=== PATIENT | male | born 1935 | race Caucasian/White ===

== ENCOUNTER → 2018-07-24 | Outpatient (CLI) | payer MEDICARE, OTHER ==
[~2018-07-24] MED LIST: ALLO300 PO; AMOX500 PO; ASPI325 PO; AZIT250 PO; Arthritis Pai42.5 GM TOP; CLON.5 PO; CLON1 PO; COLC.6 PO; ELIQUIS5 MG PO; FURO40 PO; FURO80 PO; Furosemide40 MG PO; GLIM4 PO; HYDACE5 PO; HYDACE7.5 PO; HYDR1TAB94 PO; INDO50 PO; LOVA40 PO; Lopressor 25 mg25 MG PO; METF500 PO; MONT10T PO; NIFE60ER PO; OMEP20ER PO; OXYACE5T PO; Omeprazole20 M1 PO; POTA10T PO; PROB500 PO; RXOXYACE PO; SERT100 PO; SITA100T2 PO; TAMS.4ER PO; TRAZ100 PO; Toprol Xl25 MG PO; VALS80 PO
[2018-07-25 16:13] LABS: Adenovirus F 40/41 Not Detected (NOT DETECT); Astrovirus Detected (NOT DETECT); Campylobacter Sp Not Detected (NOT DETECT); Cryptosporidium Not Detected (NOT DETECT); Cyclospora Cayetanensis Not Detected (NOT DETECT); E. Coli O157 Not Detected (NOT DETECT); Entamoeba Histolytica Not Detected (NOT DETECT); Enteroaggregative E. coli-EAEC Not Detected (NOT DETECT); Enteropathogenic E. coli-EPEC Not Detected (NOT DETECT); Enterotoxigenic E. coli-ETEC Not Detected (NOT DETECT); Giardia Lamblia Not Detected (NOT DETECT); Norovirus GI/GII Not Detected (NOT DETECT); Plesiomonas Shigelloides Not Detected (NOT DETECT); Rotavirus A Not Detected (NOT DETECT); Salmonella Sp Not Detected (NOT DETECT); Sapovirus Not Detected (NOT DETECT); Shiga Toxin-prod E. coli-STEC Not Detected (NOT DETECT); Shigella/Enteroin E. coli-EIEC Not Detected (NOT DETECT); Vibrio Cholerae Not Detected (NOT DETECT); Vibrio Sp Not Detected (NOT DETECT); Yersinia Enterocolitica Not Detected (NOT DETECT)
== END | disposition home or self-care (01) ==
LOC: LAB EV 06:30 → LAB SHORT 06:30
PROVIDERS: Nurse Practitioner Family
DX: E86.0 Dehydration (principal); M19.90 Unspecified osteoarthritis, unspecified site; R19.7 Diarrhea, unspecified
CPT/HCPCS: 87177; 87209; 87493; 87507

== ENCOUNTER → 2018-11-28 | Outpatient (CLI) | payer MEDICARE, OTHER | END | disposition home or self-care (01) | LOC: LAB SHORT 14:02 → PLD 14:02 | DX: C44.622 Squamous cell carcinoma of skin of right upper limb, including shoulder (principal) | CPT/HCPCS: 88305 ==

== ENCOUNTER → 2019-01-02 | Outpatient (CLI) | payer MEDICARE, OTHER | END | disposition home or self-care (01) | LOC: LAB SHORT 13:29 → PLD 13:29 | DX: C44.622 Squamous cell carcinoma of skin of right upper limb, including shoulder (principal) | CPT/HCPCS: 88305 ==

== ENCOUNTER → 2019-09-07 | Outpatient (CLI) | payer MEDICARE, OTHER ==
[2019-09-07 14:16] LABS: BASOPHILS ABSOLUTE AUTO 0.01 K/mm3 (0.00-0.23); BASOPHILS PERCENT AUTO 0 % (0-2); EOSINOPHILS ABSOLUTE AUTO 0.16 K/mm3 (0.00-0.68); EOSINOPHILS PERCENT AUTO 2 % (0-6); Hematocrit 42.3 % (37.0-53.0); IMMATURE GRAN ABSOLUTE AUTO 0.03 K/mm3 (0.00-0.10); IMMATURE GRAN PERCENT AUTO 1 % (0-1); LYMPHOCYTES ABSOLUTE AUTO 1.27 K/mm3 (0.84-5.20); LYMPHOCYTES PERCENT AUTO 19 % (21-46); MONOCYTES ABSOLUTE AUTO 0.42 K/mm3 (0.16-1.47); MONOCYTES PERCENT AUTO 6 % (4-13); Mean Corpuscular HGB 30.8 pg (26.0-34.0); Mean Corpuscular HGB Conc 33.1 g/dL (31.5-36.5); Mean Corpuscular Volume 93 fL (80-100); Mean Platelet Volume 10.6 fL (9.1-12.4); NEUTROPHILS ABSOLUTE AUTO 4.77 K/mm3 (1.96-9.15); NEUTROPHILS PERCENT AUTO 72 % (41-73); Platelet Count 188 K/mm3 (150-400); RDW Coefficient Variation 14.4 % (11.7-14.2); RDW Standard Deviation 48.9 fL (35.1-46.3); Red Blood Cell Count 4.54 M/mm3 (4.30-5.90); White Blood Cell Count 6.66 K/mm3 (4.00-11.30)
[2019-09-07 14:36] LABS: Anion Gap 7 mmol/L (6-16); Blood Urea Nitrogen 18 mg/dL (8-24); Bun/Creatinine Ratio 15.7 (12.0-20.0); CO2, Blood 29 mmol/L (21-32); Calcium, Blood 9.1 mg/dL (8.5-10.1); Chloride, Blood 102 mmol/L (98-108); Creatinine, Blood 1.15 mg/dL (0.60-1.20); Glomerular Filtration Rate >60 (60-); Glucose, Blood 171 mg/dL (70-99); Potassium, Blood 4.3 mmol/L (3.5-5.5); Sodium, Blood 138 mmol/L (136-145)
== END ==
LOC: LAB SHORT 14:09 → LAB EV 14:09
PROVIDERS: Physician Assistant Surgical
DX: R53.83 Other fatigue (principal)
CPT/HCPCS: 80048; 83880; 85025

== ENCOUNTER → 2020-07-17 | Outpatient (CLI) | payer MEDICARE, OTHER | END | disposition home or self-care (01) | LOC: LAB EV 12:04 | DX: R19.7 Diarrhea, unspecified (principal) | CPT/HCPCS: 87493 ==

== ENCOUNTER → 2021-01-17 | Outpatient (CLI) | payer MEDICARE, OTHER ==
[2021-01-17 10:54] LABS: BASOPHILS ABSOLUTE AUTO 0.02 K/mm3 (0.00-0.23); BASOPHILS PERCENT AUTO 0 % (0-2); EOSINOPHILS ABSOLUTE AUTO 0.21 K/mm3 (0.00-0.68); EOSINOPHILS PERCENT AUTO 3 % (0-6); Hemoglobin 13.9 g/dL (13.5-17.5); IMMATURE GRAN ABSOLUTE AUTO 0.03 K/mm3 (0.00-0.10); IMMATURE GRAN PERCENT AUTO 1 % (0-1); LYMPHOCYTES ABSOLUTE AUTO 1.48 K/mm3 (0.84-5.20); LYMPHOCYTES PERCENT AUTO 24 % (21-46); MONOCYTES ABSOLUTE AUTO 0.41 K/mm3 (0.16-1.47); MONOCYTES PERCENT AUTO 7 % (4-13); Mean Corpuscular HGB 31.2 pg (26.0-34.0); Mean Corpuscular HGB Conc 33.1 g/dL (31.5-36.5); Mean Corpuscular Volume 94 fL (80-100); Mean Platelet Volume 9.8 fL (9.1-12.4); NEUTROPHILS ABSOLUTE AUTO 4.02 K/mm3 (1.96-9.15); NEUTROPHILS PERCENT AUTO 65 % (41-73); Platelet Count 192 K/mm3 (150-400); RDW Coefficient Variation 14.3 % (11.7-14.2); RDW Standard Deviation 49.2 fL (35.1-46.3); Red Blood Cell Count 4.46 M/mm3 (4.30-5.90); White Blood Cell Count 6.17 K/mm3 (4.00-11.30)
[2021-01-17 11:03] LABS: Alanine Aminotransfer (ALT/SGP 21 U/L (12-78); Albumin, Blood 3.7 g/dL (3.4-5.0); Albumin/Globulin Ratio 0.9 (0.8-1.8); Alk Phos 74 U/L (40-126); Anion Gap 6 mmol/L (6-16); Aspartate Aminotrans (AST/SGOT 24 U/L (12-37); Bilirubin, Total 0.4 mg/dL (0.1-1.0); Blood Urea Nitrogen 18 mg/dL (8-24); Bun/Creatinine Ratio 15.9 (12.0-20.0); CO2, Blood 30 mmol/L (21-32); Calcium, Blood 8.4 mg/dL (8.5-10.1); Chloride, Blood 101 mmol/L (98-108); Creatinine, Blood 1.13 mg/dL (0.60-1.20); Globulin, Blood 4.3 g/dL (2.2-4.0); Glomerular Filtration Rate >60 (60-); Glucose, Blood 157 mg/dL (70-99); Potassium, Blood 5.3 mmol/L (3.5-5.5); Sodium, Blood 137 mmol/L (136-145)
== END ==
LOC: LAB 10:50 → LAB SHORT 10:50
PROVIDERS: Physician Assistant
DX: R53.83 Other fatigue (principal)
CPT/HCPCS: 80053; 85025

== ENCOUNTER → 2021-02-16 | Outpatient (CLI) | payer MEDICARE, OTHER | END | disposition home or self-care (01) | LOC: LAB 15:04 → LAB SHORT 15:04 | DX: L08.9 Local infection of the skin and subcutaneous tissue, unspecified (principal) | CPT/HCPCS: 87070; 87075; 87077; 87147; 87186; 87205 ==

== ENCOUNTER → 2021-03-04 | Outpatient (CLI) | payer MEDICARE, OTHER | END | disposition home or self-care (01) | LOC: LAB SHORT 08:18 | DX: S50.852A Superficial foreign body of left forearm, initial encounter (principal) | CPT/HCPCS: 88305; 88312 ==

== ENCOUNTER → 2022-03-24 | Outpatient (CLI) | payer MEDICARE, OTHER | END | disposition home or self-care (01) | LOC: LAB SHORT 12:00 → LAB 12:00 | DX: L08.0 Pyoderma (principal) | CPT/HCPCS: 87070; 87077; 87147; 87186; 87205 ==

== ENCOUNTER 2022-10-22 06:48 | Day surgery (SDC) | payer MEDICARE, OTHER ==
[~2022-10-22] VITALS: Ht 172.7 cm; Wt 115.0 kg
[2022-10-22] MEDS ORDERED: Voltaren100 GM (07:42)
[2022-10-22] MEDS ORDERED: GABA100 (07:43)
[2022-10-22] MEDS ORDERED: TIMDOROPSO (07:43)
[2022-10-22] MEDS ORDERED: Amaryl1 MG (07:43)
[2022-10-22] MEDS ORDERED: Percocet 5-3251 EACH (07:44)
[2022-10-22] MEDS ORDERED: MYRBETRIQ8 MG/1 ML (07:44)
[2022-10-22] MEDS ORDERED: PRESERVISION A1 EAC2 (07:45)
--- NOTE | 2022-10-22 08:50 | NUR ---
10/22/22 0850 WILLIAM STEWART NASAL TRUMPET, AMBU BAG / LMA BY DR. AGUAYO
[2022-10-22 09:45] VITALS: BP 140/77
== END 2022-10-22 09:30 | disposition home or self-care (01) ==
LOC: ORSCSDS 06:48
PROVIDERS: Surgery
PROC: 0DBM8ZX Excision of Descending Colon, Via Natural or Artificial Opening Endoscopic, Diagnostic (ICD-10-PCS; principal; 2022-10-22 08:15)
PROC: 0DBL8ZX Excision of Transverse Colon, Via Natural or Artificial Opening Endoscopic, Diagnostic (ICD-10-PCS; principal; 2022-10-22 08:15)
PROC: 0DBK8ZX Excision of Ascending Colon, Via Natural or Artificial Opening Endoscopic, Diagnostic (ICD-10-PCS; principal; 2022-10-22 08:15)
DX: Z12.11 Encounter for screening for malignant neoplasm of colon (principal); Z80.0 Family history of malignant neoplasm of digestive organs; Z86.010 Personal history of colon polyps; D12.2 Benign neoplasm of ascending colon; D12.3 Benign neoplasm of transverse colon; K57.30 Diverticulosis of large intestine without perforation or abscess without bleeding; G47.33 Obstructive sleep apnea (adult) (pediatric); Z80.42 Family history of malignant neoplasm of prostate; I25.10 Atherosclerotic heart disease of native coronary artery without angina pectoris; I48.91 Unspecified atrial fibrillation; Z79.01 Long term (current) use of anticoagulants; E11.40 Type 2 diabetes mellitus with diabetic neuropathy, unspecified; E78.5 Hyperlipidemia, unspecified; I10 Essential (primary) hypertension; Z79.899 Other long term (current) drug therapy; Z79.84 Long term (current) use of oral hypoglycemic drugs
CPT/HCPCS: 82947; 88305; J2704; J7120

== ENCOUNTER 2023-01-16 20:38 | Emergency (ER) | payer MEDICARE, OTHER ==
[~2023-01-16] VITALS: Ht 172.7 cm; Wt 99.8 kg
[~2023-01-16 20:38] MED LIST changes: +Amaryl1 MG; +GABA100; +MYRBETRIQ8 MG/1 ML; +PRESERVISION A1 EAC2; +Percocet 5-3251 EACH; +TIMDOROPSO; +Voltaren100 GM
[2023-01-16 21:32] LABS: BASOPHILS ABSOLUTE AUTO 0.03 K/mm3 (0.00-0.23); BASOPHILS PERCENT AUTO 0 % (0-2); EOSINOPHILS ABSOLUTE AUTO 0.21 K/mm3 (0.00-0.68); EOSINOPHILS PERCENT AUTO 3 % (0-6); Hematocrit 41.1 % (37.0-53.0); Hemoglobin 13.6 g/dL (13.5-17.5); IMMATURE GRAN ABSOLUTE AUTO 0.04 K/mm3 (0.00-0.10); IMMATURE GRAN PERCENT AUTO 1 % (0-1); LYMPHOCYTES ABSOLUTE AUTO 1.55 K/mm3 (0.84-5.20); LYMPHOCYTES PERCENT AUTO 21 % (21-46); MONOCYTES ABSOLUTE AUTO 0.37 K/mm3 (0.16-1.47); MONOCYTES PERCENT AUTO 5 % (4-13); Mean Corpuscular HGB 30.5 pg (26.0-34.0); Mean Corpuscular HGB Conc 33.1 g/dL (31.5-36.5); Mean Corpuscular Volume 92 fL (80-100); Mean Platelet Volume 9.7 fL (9.1-12.4); NEUTROPHILS ABSOLUTE AUTO 5.06 K/mm3 (1.96-9.15); NEUTROPHILS PERCENT AUTO 70 % (41-73); NRBC ABSOLUTE 0.02 K/mm3 (0.00-0.02); NRBC Auto 0.3 /100 WBC (0.0-0.2); Platelet Count 121 K/mm3 (150-400); RDW Standard Deviation 47.1 fL (35.1-46.3); Red Blood Cell Count 4.46 M/mm3 (4.30-5.90); White Blood Cell Count 7.26 K/mm3 (4.00-11.30)
[2023-01-16 21:49] LABS: Albumin, Blood 3.3 g/dL (3.4-5.0); Albumin/Globulin Ratio 0.8 (0.8-1.8); Bilirubin, Total 0.2 mg/dL (0.1-1.0); Calcium, Blood 8.5 mg/dL (8.5-10.1); Creatinine, Blood 0.93 mg/dL (0.60-1.20); Globulin, Blood 4.1 g/dL (2.2-4.0); Potassium, Blood 4.3 mmol/L (3.5-5.5); Total Protein, Blood 7.4 g/dL (6.4-8.2)
[2023-01-16 23:11] LABS: Source, Urine Clean Catch
[2023-01-16 23:18] LABS: Bilirubin, Urine Neg (Neg); Blood, Urine 1+ (Neg); Glucose Qualitative, Urine Neg (Neg); Ketones, Urine Neg (Neg); Leukocyte Esterase, Urine Neg (Neg); Nitrite, Urine Neg (Neg); Protein, Urine 3+ (Neg); Urobilinogen, Urine NORM (Normal)
[2023-01-16 23:20] LABS: Appearance, Urine Clear (Clear); Color, Urine Yellow (P-Yellow)
[2023-01-16 23:25] LABS: Bacteria Not Seen /hpf; Red Blood Cells, Urine 0-2 /hpf (0-2); Squamous Epithelial Cells Rare /hpf (Few); White Blood Cells, Urine Not Seen /hpf (0-5)
[2023-01-16] MEDS ORDERED: Robaxin750 MG PO (23:32)
[2023-01-16] MEDS ORDERED: Percocet 5-3251 EACH PO (23:32)
[2023-01-16 23:50] VITALS: BP 107/64
== END 2023-01-16 23:50 | disposition home or self-care (01) ==
LOC: ER 20:38
PROVIDERS: Physician Assistant
DX: S39.012A Strain of muscle, fascia and tendon of lower back, initial encounter (principal); R53.1 Weakness; W19.XXXA Unspecified fall, initial encounter; Z79.01 Long term (current) use of anticoagulants; Z79.2 Long term (current) use of antibiotics; Z79.84 Long term (current) use of oral hypoglycemic drugs; Z79.899 Other long term (current) drug therapy; E11.9 Type 2 diabetes mellitus without complications; G47.30 Sleep apnea, unspecified; I48.91 Unspecified atrial fibrillation; Z87.891 Personal history of nicotine dependence
CPT/HCPCS: 72100; 80053; 81001; 85025; 93005; 93010; 96374; 99285-25; A9270; J1885

== ENCOUNTER → 2023-09-29 | Outpatient (CLI) | payer MEDICARE, OTHER ==
[~2023-09-29] MED LIST changes: +Amaryl1 MG PO; +ELIQUIS2.5 MG PO; +GABA300 PO; +LATA.005SO BOTHEYES; +MYRBETRIQ50 MG PO; +Percocet 5-3251 EACH PO; +Prednisone20 MG PO; +Robaxin750 MG PO; -TIMDOROPSO; +TIMDOROPSO BOTHEYES; -Voltaren100 GM; +Voltaren100 GM TOP
[2023-09-29 13:30] LABS: BASOPHILS ABSOLUTE AUTO 0.02 K/mm3 (0.00-0.23); BASOPHILS PERCENT AUTO 0 % (0-2); EOSINOPHILS ABSOLUTE AUTO 0.01 K/mm3 (0.00-0.68); EOSINOPHILS PERCENT AUTO 0 % (0-6); Hematocrit 39.4 % (37.0-53.0); Hemoglobin 12.9 g/dL (13.5-17.5); IMMATURE GRAN ABSOLUTE AUTO 0.08 K/mm3 (0.00-0.10); IMMATURE GRAN PERCENT AUTO 1 % (0-1); LYMPHOCYTES ABSOLUTE AUTO 1.06 K/mm3 (0.84-5.20); LYMPHOCYTES PERCENT AUTO 11 % (21-46); MONOCYTES ABSOLUTE AUTO 0.54 K/mm3 (0.16-1.47); MONOCYTES PERCENT AUTO 6 % (4-13); Mean Corpuscular HGB 30.2 pg (26.0-34.0); Mean Corpuscular HGB Conc 32.7 g/dL (31.5-36.5); Mean Corpuscular Volume 92 fL (80-100); NEUTROPHILS ABSOLUTE AUTO 7.73 K/mm3 (1.96-9.15); NEUTROPHILS PERCENT AUTO 82 % (41-73); RDW Coefficient Variation 15.2 % (11.7-14.2); RDW Standard Deviation 50.7 fL (35.1-46.3); Red Blood Cell Count 4.27 M/mm3 (4.30-5.90); White Blood Cell Count 9.44 K/mm3 (4.00-11.30)
[2023-09-29 13:41] LABS: Albumin, Blood 3.6 g/dL (3.4-5.0); Albumin/Globulin Ratio 0.8 (0.8-1.8); Bilirubin, Total 1.3 mg/dL (0.1-1.0); Bun/Creatinine Ratio 19.8 (12.0-20.0); Calcium, Blood 9.5 mg/dL (8.5-10.1); Creatinine, Blood 1.11 mg/dL (0.60-1.20); Globulin, Blood 4.5 g/dL (2.2-4.0); Potassium, Blood 3.8 mmol/L (3.5-5.5); Total Protein, Blood 8.1 g/dL (6.4-8.2)
[2023-09-29 13:50] LABS: Platelet Count 20 K/mm3 (150-400)
[2023-09-29 15:58] LABS: International Normalized Ratio 1.21; Prothrombin Time Results 12.6 Sec (9.7-11.5)
== END ==
LOC: LAB 13:22 → LAB SHORT 13:22
PROVIDERS: Physician Assistant
DX: R05.9 Cough, unspecified (principal); D69.6 Thrombocytopenia, unspecified
CPT/HCPCS: 80053; 85025; 85610

== ENCOUNTER 2023-10-06 17:09 | Inpatient (IN) | payer MEDICARE, OTHER ==
[~2023-10-06] VITALS: Ht 172.7 cm; Wt 110.8 kg
[~2023-10-06 17:09] MED LIST changes: -Amaryl1 MG PO; -ELIQUIS2.5 MG PO; -GABA300 PO; -LATA.005SO BOTHEYES; -MYRBETRIQ50 MG PO; -Prednisone20 MG PO
[2023-10-06 17:27] VITALS: BP 159/70
[2023-10-06] MEDS ORDERED: METF500 PO ×2 (18:01→18:42)
[2023-10-06] MEDS ORDERED: MethylPREDNISolone Sod Succ 40 MG VIAL IV SCH (18:15)
[2023-10-06] MEDS ORDERED: ELIQUIS2.5 MG PO (18:39)
[2023-10-06] MEDS ORDERED: FURO40 PO (18:39)
[2023-10-06] MEDS ORDERED: GABA300 PO ×2 (18:40)
[2023-10-06] MEDS ORDERED: Amaryl1 MG PO (18:41)
[2023-10-06] MEDS ORDERED: LATA.005SO BOTHEYES (18:42)
[2023-10-06] MEDS ORDERED: Robaxin750 MG PO (18:44)
[2023-10-06] MEDS ORDERED: MYRBETRIQ50 MG PO (18:46)
[2023-10-06] MEDS ORDERED: OMEP20ER PO (18:46)
[2023-10-06] MEDS ORDERED: POTA10T PO (18:47)
[2023-10-06 19:28] VITALS: BP 141/71
--- NOTE | 2023-10-06 19:43 | NUR ---
SHIFT SUMMARY- PT WAS A DIRECT ADMIT FOR THROMBOCYTOPENIA. PLATELET COUNT IS 7 ON OUT PT LBS TODAY. PT WAS CHANGED INTO A GOWN, 2 RN SKIN CHECK WAS COMPLETED WITH RN SANJUANITA GREENFIELD. PT FAMILY IS AT THE BEDSIDE. CALLED DR LUNDBERG AND RECIEVED VERBAL ORDERS FOR ADMISSION. AT THE TIME OF ASESSMENT THE PT FAMILY EXPRESSED CONCERN ABOUT THE PT NEED FOR A C-PAP. CALLED DR LUNDBERG AND RECIEVED CONT BIOX AND CPAP ORDERS. CALLED RT AND REQUESTED SET UP. THEY ARE AWARE OF THE ORDER. ATTEMPTED IV ACCESS IN THE LEFT FORE ARM, THERE WAS A FLASH BUT WOULD NOT ADVANCE OR FLUSH. D/T SWELLING AT THE SITE A PRESSURE WRAP WAS PLACED. PASSED ON TO NIGHT RN IN BEDSIDE REPORT. PT IN BED, CALL LIGHT IN REACH, BED IN LOW POSITION NO S&S OF DISTRESS NOTED.
[2023-10-06] MEDS ORDERED: Ondansetron 4 MG TAB PO PRN (19:55)
[2023-10-06] MEDS ORDERED: Acetaminophen 325 MG TABLET PO PRN (19:55)
[2023-10-06] MEDS ORDERED: Methocarbamol 500 MG Tab PO PRN (20:00)
[2023-10-06] MEDS ORDERED: OxyCODONE 5 mg/Acetamin 325 mg TABLET PO PRN (20:00)
[2023-10-06] MEDS ORDERED: TraZODone HCl 100 MG Tab PO PRN (20:00)
[2023-10-06] MEDS ORDERED: CAPSAICIN 0.1% TOP PRN (20:20)
[2023-10-06] MEDS ORDERED: Latanoprost 0.005% Opth Soln 2.5 ML BOTHEYES SCH (21:00)
[2023-10-06] MEDS ORDERED: Gabapentin 300 MG Cap PO SCH (21:00)
[2023-10-06] MEDS ORDERED: NS 250 ML IV PRN (21:35)
[2023-10-06 22:03] VITALS: BP 182/78
[2023-10-06 22:36] VITALS: BP 186/71
--- NOTE | 2023-10-06 22:46 | NUR ---
PATIENT RECEIVING ONE UNIT PLATELET EMERGENCY OVERRIDE BY DR MEJÍA. DR MEJÍA IN PATIENT ROOM TO ASSESS AND SIGN 0VERRIDE FORM. PLATELET: 7. DR LOWE ORDERED THE ONE UNIT OF PLATELET. PATIENT WAS SEEN IN DR LOWE OFFICE AND DIRECT ADMIT PATIENT AND SAW PATIENT IN ROOM. CALL CENTER DIRECTOR TARAN IN ROOM TO CLARIFY PATIENT NAME AND ID BAND. STILL PENDING HOW PATIENT IS IN THE SYSTEM. TOLERATING INFUSION. WCTM.
[2023-10-06 23:40] VITALS: BP 155/92
[2023-10-06 23:45] VITALS: BP 156/72
--- NOTE | 2023-10-06 23:56 | NUR ---
PLATELETS TRANSFUSED. TOLERATED WELL. SLEEPING. WCTM.
--- NOTE | 2023-10-07 03:38 | NUR ---
SHIFT SUMMARY PT. IS VERY PLEASANT, VERY COOPERATIVE WITH CARE, A&O X4. @HS PT.'S DAUGHTER AND SON-IN-LAW BY THE BEDSIDE. POWER GLIDE INSERTED ON LEFT UPPER ARM. RN AND CHARGE NURSE VERIFIED AND ADMINISTERED PLATELETS ORDERED. PT. DENIES PAIN, H/A, COUGH, N/V. AFEBRILE. LS CLEAR UL, DIMINISHED LL'S TO AUSCULTATION. BT'S HYPOACTIVE. TELEMETRY REPORT: [id number]. HS B. PT. LAYING FLAT ON THE HOSPITAL BED, RESTING T/O THE NIGHT, C-PAP IN USE. NO ACUTE DISTRESS NOTED/REPORTED DURING THIS SHIFT. BED ALARM IN USE, BED AT THE LOWEST POSITION, CALL LIGHT WITHIN REACH. WILL REPORT TO INCOMING SHIFT NURSE.
[2023-10-07 04:27] VITALS: BP 143/79
[2023-10-07 05:52] LABS: BASOPHILS ABSOLUTE AUTO 0.02 K/mm3 (0.00-0.23); BASOPHILS PERCENT AUTO 0 % (0-2); EOSINOPHILS ABSOLUTE AUTO 0.01 K/mm3 (0.00-0.68); EOSINOPHILS PERCENT AUTO 0 % (0-6); Hematocrit 37.1 % (37.0-53.0); Hemoglobin 12.4 g/dL (13.5-17.5); IMMATURE GRAN ABSOLUTE AUTO 0.06 K/mm3 (0.00-0.10); IMMATURE GRAN PERCENT AUTO 1 % (0-1); LYMPHOCYTES ABSOLUTE AUTO 0.67 K/mm3 (0.84-5.20); LYMPHOCYTES PERCENT AUTO 11 % (21-46); MONOCYTES ABSOLUTE AUTO 0.05 K/mm3 (0.16-1.47); MONOCYTES PERCENT AUTO 1 % (4-13); Mean Corpuscular HGB 29.8 pg (26.0-34.0); Mean Corpuscular HGB Conc 33.4 g/dL (31.5-36.5); Mean Corpuscular Volume 89 fL (80-100); NEUTROPHILS ABSOLUTE AUTO 5.58 K/mm3 (1.96-9.15); NEUTROPHILS PERCENT AUTO 87 % (41-73); RDW Coefficient Variation 14.3 % (11.7-14.2); RDW Standard Deviation 46.8 fL (35.1-46.3); Red Blood Cell Count 4.16 M/mm3 (4.30-5.90); White Blood Cell Count 6.39 K/mm3 (4.00-11.30)
[2023-10-07 05:56] LABS: Platelet Count 14 K/mm3 (150-400)
[2023-10-07] MEDS ORDERED: Omeprazole 20 MG CapCR PO SCH (06:00)
--- NOTE | 2023-10-07 06:13 | NUR ---
CRITICAL VALUE NOTIFICATION FROM LAB/PLATELETS:14. NOTIFIED. NO NEW ORDERS.
[2023-10-07 06:17] LABS: Albumin, Blood 3.2 g/dL (3.4-5.0); Albumin/Globulin Ratio 0.8 (0.8-1.8); Bilirubin, Total 0.7 mg/dL (0.1-1.0); Bun/Creatinine Ratio 26.2 (12.0-20.0); Calcium, Blood 8.8 mg/dL (8.5-10.1); Creatinine, Blood 0.76 mg/dL (0.60-1.20); Globulin, Blood 4.1 g/dL (2.2-4.0); Magnesium, Blood 1.2 mg/dL (1.6-2.4); Potassium, Blood 5.6 mmol/L (3.5-5.5); Total Protein, Blood 7.3 g/dL (6.4-8.2)
[2023-10-07] MEDS ORDERED: Trospium Chloride 20 MG Tab PO SCH (07:30)
[2023-10-07] MEDS ORDERED: Insulin Human Lispro 100 Units/ML 3ML Syringe SC SCH (07:30)
[2023-10-07] MEDS ORDERED: Potassium Chloride 10 Meq Tablet SA PO SCH (08:00)
[2023-10-07] MEDS ORDERED: MetFORMIN HCl 500 mg PO SCH (08:00)
[2023-10-07 08:07] VITALS: BP 143/89
[2023-10-07] MEDS ORDERED: Metoprolol Succinate 25 MG TABCR PO SCH (09:00)
[2023-10-07] MEDS ORDERED: DICLOFENAC 1% TOP SCH (09:00)
[2023-10-07] MEDS ORDERED: Glimepiride 1 MG Tablet PO SCH (09:00)
[2023-10-07] MEDS ORDERED: Sertraline HCl 100 MG Tab PO SCH (09:00)
[2023-10-07] MEDS ORDERED: Tamsulosin HCl 0.4 MG Cap PO SCH (09:00)
[2023-10-07] MEDS ORDERED: Allopurinol 300 MG Tab PO SCH (09:00)
[2023-10-07] MEDS ORDERED: Furosemide 40 MG Tab PO SCH (09:00)
[2023-10-07] MEDS ORDERED: ClonazePAM 0.5 MG Tab PO SCH (09:00)
[2023-10-07] MEDS ORDERED: Dorzolamide/Timolol Opth Soln 10 ML BOTHEYES SCH (09:00)
[2023-10-07 09:51] LABS: International Normalized Ratio 1.21; Prothrombin Time Results 12.8 Sec (9.7-11.5)
[2023-10-07 15:34] VITALS: BP 142/68
--- NOTE | 2023-10-07 18:23 | NUR ---
SUMMARY- NO ACUTE EVENTS THIS SHIFT. PT AAOX4. X1 ASSIST TO THE BATHROOM. PT HAS A GOOD APPETITE. PT C/O SLIGHT FATIGUE THIS SHIFT.
[2023-10-07 19:16] VITALS: BP 148/77
[2023-10-08 04:28] VITALS: BP 147/74
--- NOTE | 2023-10-08 06:13 | NUR ---
SHIFT SUMMARY PT REQUESTED KLONOPIN BE ADMINISTERED HS RATHER THAN IN AM, THAT IS HIS USUAL TIME TO TAKE THE MEDICATION. OFFERED HIM FULL DOSE OF TRAZODONE TO HELP HIM SLEEP. PT ABLE TO SLEEP THROUGH THE NIGHT. CONTINUING TO MONITOR.
[2023-10-08 07:12] LABS: BASOPHILS ABSOLUTE AUTO 0.01 K/mm3 (0.00-0.23); BASOPHILS PERCENT AUTO 0 % (0-2); EOSINOPHILS PERCENT AUTO 0 % (0-6); Hematocrit 37.7 % (37.0-53.0); Hemoglobin 12.5 g/dL (13.5-17.5); IMMATURE GRAN ABSOLUTE AUTO 0.15 K/mm3 (0.00-0.10); IMMATURE GRAN PERCENT AUTO 1 % (0-1); LYMPHOCYTES ABSOLUTE AUTO 0.86 K/mm3 (0.84-5.20); LYMPHOCYTES PERCENT AUTO 7 % (21-46); MONOCYTES ABSOLUTE AUTO 0.13 K/mm3 (0.16-1.47); MONOCYTES PERCENT AUTO 1 % (4-13); Mean Corpuscular HGB Conc 33.2 g/dL (31.5-36.5); Mean Corpuscular Volume 90 fL (80-100); NEUTROPHILS ABSOLUTE AUTO 11.69 K/mm3 (1.96-9.15); NEUTROPHILS PERCENT AUTO 91 % (41-73); RDW Coefficient Variation 14.2 % (11.7-14.2); RDW Standard Deviation 47.3 fL (35.1-46.3); Red Blood Cell Count 4.17 M/mm3 (4.30-5.90); White Blood Cell Count 12.84 K/mm3 (4.00-11.30)
[2023-10-08 07:22] LABS: Platelet Count 40 K/mm3 (150-400)
[2023-10-08 07:25] VITALS: BP 142/76
[2023-10-08 07:32] LABS: Bun/Creatinine Ratio 30.6 (12.0-20.0); Calcium, Blood 9.1 mg/dL (8.5-10.1); Creatinine, Blood 0.82 mg/dL (0.60-1.20); Potassium, Blood 4.8 mmol/L (3.5-5.5)
[2023-10-08 14:43] VITALS: BP 158/65
--- NOTE | 2023-10-08 17:00 | NUR ---
SHIFT SUMMARY Pt remains A&Ox3 this shift. Denies pain. VSS. Resp even nonlabored on RA. Home cpap for RADHA brought in today by daughter. Up to bsc with SBA. Pt request to take Klonopin at bedtime. Dr. Beard made aware to change order. No futher needs id or verbalized at this time.
[2023-10-08 19:44] VITALS: BP 159/77
[2023-10-08] MEDS ORDERED: ClonazePAM 0.5 MG Tab PO SCH (21:00)
[2023-10-09 04:18] VITALS: BP 173/68
[2023-10-09 06:02] LABS: BASOPHILS ABSOLUTE AUTO 0.01 K/mm3 (0.00-0.23); BASOPHILS PERCENT AUTO 0 % (0-2); EOSINOPHILS PERCENT AUTO 0 % (0-6); Hematocrit 38.2 % (37.0-53.0); Hemoglobin 12.5 g/dL (13.5-17.5); IMMATURE GRAN ABSOLUTE AUTO 0.11 K/mm3 (0.00-0.10); IMMATURE GRAN PERCENT AUTO 1 % (0-1); LYMPHOCYTES ABSOLUTE AUTO 0.72 K/mm3 (0.84-5.20); LYMPHOCYTES PERCENT AUTO 6 % (21-46); MONOCYTES ABSOLUTE AUTO 0.12 K/mm3 (0.16-1.47); MONOCYTES PERCENT AUTO 1 % (4-13); Mean Corpuscular HGB 29.4 pg (26.0-34.0); Mean Corpuscular HGB Conc 32.7 g/dL (31.5-36.5); Mean Corpuscular Volume 90 fL (80-100); NEUTROPHILS ABSOLUTE AUTO 11.45 K/mm3 (1.96-9.15); NEUTROPHILS PERCENT AUTO 92 % (41-73); Platelet Count 70 K/mm3 (150-400); RDW Coefficient Variation 14.1 % (11.7-14.2); RDW Standard Deviation 46.3 fL (35.1-46.3); Red Blood Cell Count 4.25 M/mm3 (4.30-5.90); White Blood Cell Count 12.41 K/mm3 (4.00-11.30)
[2023-10-09 06:12] LABS: Mean Platelet Volume 13.5 fL (9.1-12.4)
[2023-10-09 06:13] LABS: Bun/Creatinine Ratio 37.7 (12.0-20.0); Calcium, Blood 9.6 mg/dL (8.5-10.1); Creatinine, Blood 0.82 mg/dL (0.60-1.20); Potassium, Blood 4.7 mmol/L (3.5-5.5)
[2023-10-09 07:08] VITALS: BP 166/79
--- NOTE | 2023-10-09 07:18 | NUR ---
SHIFT SUMMARY PT SLEPT WELL THROUGH NIGHT WHEN NOT BEING DISTURBED FOR MEDICATIONS, ETC. HE WAS PLEASANT AND COOPERATIVE WITH CARE. CONTINUING TO MONITOR.
[2023-10-09 09:49] LABS: HIV 1,2 COMBO ANTIGEN/ANTIBODY Negative (Negative)
[2023-10-09 11:03] LABS: HEPATITIS C AB CIA INTERP Negative (Negative); HEPATITIS C ANTIBODY CIA INDEX 0.06 IV
[2023-10-09] MEDS ORDERED: Prednisone20 MG PO (12:10)
--- NOTE | 2023-10-09 14:42 | NUR ---
SHIFT/DISCHARGE INSTRUCTIONS: Pt remains A&Ox3 this shift. VSS. Denies pain. Resp even nonlabored on RA. Home Cpap for sleep. Up to bathroom independently. All discharge instructions reviewed with pt, daughter and MALINA. Powerglide removed by hot car charger. Pt to lobby via transfer chair with all belongings.
[2023-10-10] MEDS ORDERED: PredniSONE 20 MG Tab PO SCH (09:00)
== END 2023-10-09 14:43 | disposition home or self-care (01) | DRG 813 ==
LOC: MEDS 17:09
PROVIDERS: Internal Medicine; ADMIT Internal Medicine
PROC: 30233R1 Transfusion of Nonautologous Platelets into Peripheral Vein, Percutaneous Approach (ICD-10-PCS; principal; 2023-10-06)
DX: D69.3 Immune thrombocytopenic purpura (principal); I50.32 Chronic diastolic (congestive) heart failure; I48.91 Unspecified atrial fibrillation; G47.33 Obstructive sleep apnea (adult) (pediatric); F41.8 Other specified anxiety disorders; Z85.46 Personal history of malignant neoplasm of prostate; K31.89 Other diseases of stomach and duodenum; M10.9 Gout, unspecified; I34.0 Nonrheumatic mitral (valve) insufficiency; M50.33 Other cervical disc degeneration, cervicothoracic region; R32 Unspecified urinary incontinence; G89.29 Other chronic pain; M54.9 Dorsalgia, unspecified; K21.00 Gastro-esophageal reflux disease with esophagitis, without bleeding; Z90.49 Acquired absence of other specified parts of digestive tract; Z98.890 Other specified postprocedural states; Z87.891 Personal history of nicotine dependence; Z79.01 Long term (current) use of anticoagulants; Z79.84 Long term (current) use of oral hypoglycemic drugs; Z79.891 Long term (current) use of opiate analgesic; Z79.899 Other long term (current) drug therapy; Z92.3 Personal history of irradiation; E11.22 Type 2 diabetes mellitus with diabetic chronic kidney disease; N18.9 Chronic kidney disease, unspecified; E11.69 Type 2 diabetes mellitus with other specified complication; E66.09 Other obesity due to excess calories
CPT/HCPCS: 36415; 36430; 80048; 80053; 82947; 83036; 83735; 84153; 84154; 84443; 85025; 85384; 85610; 86803; 86900; 86901; 87338; 87389; 94660; 94762; A9270; J2920; J7050; P9035

== ENCOUNTER 2023-12-27 17:14 | Emergency (ER) | payer MEDICARE, OTHER ==
[~2023-12-27] VITALS: Ht 165.1 cm; Wt 95.2 kg
[~2023-12-27 17:14] MED LIST changes: +Amaryl1 MG PO; +ELIQUIS2.5 MG PO; +GABA300 PO; +LATA.005SO BOTHEYES; +MYRBETRIQ50 MG PO; +Prednisone20 MG PO
[2023-12-27] MEDS ORDERED: NS 1,000 ML IV SCH ×2 (17:30→20:35)
[2023-12-27 17:52] LABS: BASOPHILS ABSOLUTE AUTO 0.02 K/mm3 (0.00-0.23); BASOPHILS PERCENT AUTO 0 % (0-2); EOSINOPHILS ABSOLUTE AUTO 0.08 K/mm3 (0.00-0.68); EOSINOPHILS PERCENT AUTO 1 % (0-6); Hematocrit 35.5 % (37.0-53.0); IMMATURE GRAN ABSOLUTE AUTO 0.23 K/mm3 (0.00-0.10); IMMATURE GRAN PERCENT AUTO 4 % (0-1); LYMPHOCYTES ABSOLUTE AUTO 1.09 K/mm3 (0.84-5.20); LYMPHOCYTES PERCENT AUTO 19 % (21-46); MONOCYTES ABSOLUTE AUTO 0.48 K/mm3 (0.16-1.47); MONOCYTES PERCENT AUTO 9 % (4-13); Mean Corpuscular HGB 29.3 pg (26.0-34.0); Mean Corpuscular HGB Conc 33.8 g/dL (31.5-36.5); Mean Corpuscular Volume 87 fL (80-100); Mean Platelet Volume 11.7 fL (9.1-12.4); NEUTROPHILS ABSOLUTE AUTO 3.75 K/mm3 (1.96-9.15); NEUTROPHILS PERCENT AUTO 66 % (41-73); Platelet Count 53 K/mm3 (150-400); RDW Coefficient Variation 15.5 % (11.7-14.2); RDW Standard Deviation 49.1 fL (35.1-46.3); Red Blood Cell Count 4.09 M/mm3 (4.30-5.90); White Blood Cell Count 5.65 K/mm3 (4.00-11.30)
[2023-12-27 18:14] LABS: Bicarbonate Venous 26.7 mmol/L (24.0-30.0); PCO2 Venous 30 mmHg (38-42); pH Blood Venous 7.53 (7.34-7.37)
[2023-12-27 18:15] LABS: Base Excess Venous 1.9 mmol/L
[2023-12-27 18:29] LABS: Albumin, Blood 2.8 g/dL (3.4-5.0); Albumin/Globulin Ratio 0.7 (0.8-1.8); Bilirubin, Total 0.3 mg/dL (0.1-1.0); Bun/Creatinine Ratio 19.6 (12.0-20.0); Calcium, Blood 8.6 mg/dL (8.5-10.1); Creatinine, Blood 0.87 mg/dL (0.60-1.20); Globulin, Blood 4.2 g/dL (2.2-4.0); Potassium, Blood 4.3 mmol/L (3.5-5.5)
[2023-12-27 18:29] LABS: Source, Urine Clean Catch
[2023-12-27 18:33] LABS: Appearance, Urine Clear (Clear); Bilirubin, Urine Neg (Neg); Blood, Urine Neg (Neg); Color, Urine Yellow (P-Yellow); Glucose Qualitative, Urine 4+ (Neg); Ketones, Urine Neg (Neg); Leukocyte Esterase, Urine Neg (Neg); Nitrite, Urine Neg (Neg); Protein, Urine 1+ (Neg); Urobilinogen, Urine NORM (Normal)
[2023-12-27] MEDS ORDERED: Insulin Regular 100 Unit/ML 1ML Dose IV ONE (20:35)
[2023-12-27 22:00] VITALS: BP 133/90
== END 2023-12-27 22:00 | disposition home or self-care (01) ==
LOC: ER 17:14
PROVIDERS: Physician Assistant
DX: E11.65 Type 2 diabetes mellitus with hyperglycemia (principal); K21.9 Gastro-esophageal reflux disease without esophagitis; Z79.899 Other long term (current) drug therapy; Z79.84 Long term (current) use of oral hypoglycemic drugs; Z79.52 Long term (current) use of systemic steroids; Z79.01 Long term (current) use of anticoagulants; Z95.5 Presence of coronary angioplasty implant and graft; Z87.891 Personal history of nicotine dependence
CPT/HCPCS: 80053; 82803; 82947; 85025; J1815; J7030

== ENCOUNTER 2024-08-18 14:55 | Emergency (ER) | payer MEDICARE, OTHER ==
[~2024-08-18] VITALS: Ht 172.7 cm; Wt 104.3 kg
[2024-08-18 15:44] LABS: BASOPHILS ABSOLUTE AUTO 0.01 K/mm3 (0.00-0.23); BASOPHILS PERCENT AUTO 0 % (0-2); EOSINOPHILS ABSOLUTE AUTO 0.02 K/mm3 (0.00-0.68); EOSINOPHILS PERCENT AUTO 0 % (0-6); Hematocrit 42.8 % (37.0-53.0); IMMATURE GRAN ABSOLUTE AUTO 0.02 K/mm3 (0.00-0.10); IMMATURE GRAN PERCENT AUTO 0 % (0-1); LYMPHOCYTES ABSOLUTE AUTO 0.69 K/mm3 (0.84-5.20); LYMPHOCYTES PERCENT AUTO 14 % (21-46); MONOCYTES ABSOLUTE AUTO 0.48 K/mm3 (0.16-1.47); MONOCYTES PERCENT AUTO 9 % (4-13); Mean Corpuscular HGB 29.5 pg (26.0-34.0); Mean Corpuscular HGB Conc 32.7 g/dL (31.5-36.5); Mean Corpuscular Volume 90 fL (80-100); Mean Platelet Volume 11.6 fL (9.1-12.4); NEUTROPHILS PERCENT AUTO 76 % (41-73); Platelet Count 77 K/mm3 (150-400); RDW Coefficient Variation 15.4 % (11.7-14.2); RDW Standard Deviation 51.4 fL (35.1-46.3); Red Blood Cell Count 4.74 M/mm3 (4.30-5.90); White Blood Cell Count 5.12 K/mm3 (4.00-11.30)
[2024-08-18 15:45] LABS: Albumin, Blood 3.3 g/dL (3.4-5.0); Albumin/Globulin Ratio 0.9 (0.8-1.8); Bilirubin, Total 0.5 mg/dL (0.1-1.0); Bun/Creatinine Ratio 18.5 (12.0-20.0); Calcium, Blood 8.5 mg/dL (8.5-10.1); Creatinine, Blood 1.19 mg/dL (0.60-1.20); Globulin, Blood 3.8 g/dL (2.2-4.0); Potassium, Blood 4.2 mmol/L (3.5-5.5); Total Protein, Blood 7.1 g/dL (6.4-8.2)
[2024-08-18 16:05] LABS: Influenza B, PCR NEGATIVE (NEGATIVE); Resp Syncytial Virus, PCR NEGATIVE (NEGATIVE); SARS-Cov-2 (COVID-19) PCR, MMC NEGATIVE (NEGATIVE)
[2024-08-18 17:29] LABS: Influenza A, PCR POSITIVE (NEGATIVE)
[2024-08-18] MEDS ORDERED: BENZ100A PO (17:59)
[2024-08-18 18:20] VITALS: BP 156/82
== END 2024-08-18 18:20 | disposition home or self-care (01) ==
LOC: ER 14:55
PROVIDERS: Emergency Medicine
DX: J10.1 Influenza due to other identified influenza virus with other respiratory manifestations (principal); I48.91 Unspecified atrial fibrillation; E11.9 Type 2 diabetes mellitus without complications; G47.33 Obstructive sleep apnea (adult) (pediatric); K21.9 Gastro-esophageal reflux disease without esophagitis; Z79.01 Long term (current) use of anticoagulants; Z79.84 Long term (current) use of oral hypoglycemic drugs; Z79.899 Other long term (current) drug therapy; Z79.891 Long term (current) use of opiate analgesic; Z87.891 Personal history of nicotine dependence
CPT/HCPCS: 0241U; 71045; 80053; 83880; 84484; 85025; 93005; 93010; 99285-25